=== PATIENT | female | born 1960 | race African-American/Black ===

== ENCOUNTER 2021-04-02 08:07 | Inpatient (IN) | payer MEDICAID ==
[~2021-04-02] VITALS: Ht 170.2 cm; Wt 58.8 kg
[~2021-04-02 08:07] MED LIST: FERR325T23 MT; FOLI-43 MT; RIVA10TA MT
[2021-04-02] MEDS ORDERED: SODIUM CHLORIDE 0.9% 100 ML IV ONE (08:45)
[2021-04-02 09:29] LABS: BASOPHILS % 0.5 % (0.0-2.0); EOSINOPHILS % 2.2 % (0.0-5.0); HEMATOCRIT. 25.3 % (36.0-48.0); HEMOGLOBIN. 8.5 g/dL (12.0-16.0); LYMPHOCYTES % 17.8 % (20.0-50.0); MEAN CORPUSCULAR HEMOGLOBIN 31.8 pg (28.0-32.0); MEAN CORPUSCULAR VOLUME 95.2 fL (81.0-99.0); MEAN PLATELET VOLUME 6.6 fl (7.4-10.4); MONOCYTES % 3.4 % (2.0-8.0); NEUTROPHILS % 76.1 % (40.0-76.0); PLATELET 138 x1000/uL (130-400); RED BLOOD CELL COUNT 2.66 mill/uL (4.2-5.4); RED CELL DISTRIBUTION WIDTH 18.6 % (11.6-14.6)
[2021-04-02 09:46] LABS: D-DIMER 7.13 mg/L FEU (<0.50); INR 1.2; PARTIAL THROMBOPLASTIN TIME 39.5 sec (23.4-31.0); PROTHROMBIN TIME 13.1 sec (9.6-11.0)
[2021-04-02] MEDS ORDERED: PIPERACILLIN/TAZOBACTAM 3.375GM/50ML PREMIX IV ONE (13:15)
[2021-04-02] MEDS ORDERED: PIPERACILLIN/TAZ 3.375G PREMIX 50 ML IV NR (13:15)
[2021-04-02] MEDS ORDERED: SODIUM CHLORIDE 0.9% 1,000 ML IV ONE (14:00)
[2021-04-02] MEDS ORDERED: ONDANSETRON HCL 4MG/2ML INJ IV PRN (15:30)
[2021-04-02] MEDS ORDERED: ACETAMINOPHEN 325MG TABLET PO PRN (15:30)
[2021-04-02] MEDS ORDERED: CLONIDINE 0.1MG TABLET PO PRN (15:30)
[2021-04-02] MEDS ORDERED: DIPHENHYDRAMINE 50MG/ML VIAL IV PRN (15:30)
[2021-04-02] MEDS ORDERED: IPRATROPIUM/ALBUTEROL 0.5-3(2.5)MG/3ML NEB HHN PRN (15:30)
[2021-04-02] MEDS ORDERED: ENOXAPARIN 30MG/0.3ML SYR SUBCUT SCH (15:45)
[2021-04-02] MEDS ORDERED: CEFTRIAXONE 1,000 MG in DEXTROSE 5% WATER 50 ML IV SCH (16:00)
[2021-04-02] MEDS ORDERED: AZITHROMYCIN 500 MG in DEXT 5% WATER 250 ML IV SCH (16:30)
[2021-04-02 18:08] LABS: PHOSPHORUS 2.5 mg/dL (2.5-4.9)
[2021-04-02 21:47] LABS: CLARITY URINE CLEAR (CLEAR); COLOR URINE YELLOW (YELLOW); KETONES URINE NEGATIVE (NEGATIVE); LEUKOCYTE ESTERASE URINE NEGATIVE (NEGATIVE); NITRITE URINE NEGATIVE (NEGATIVE); OCCULT BLOOD URINE NEGATIVE (NEGATIVE); PH URINE 5.5 (4.5-8.0); PROTEIN URINE NEGATIVE (NEGATIVE); SPECIFIC GRAVITY URINE 1.005 (1.005-1.030); UROBILINOGEN URINE 0.2 E.U./dL (0.2-1.0)
[2021-04-02 22:00] VITALS: BP 114/75
[2021-04-02 23:00] VITALS: BP 114/75
[2021-04-03] MEDS ORDERED: POTASSIUM CHLORIDE INJ 40 MEQ in DEXT 5% WATER 250 ML IV NR (03:00)
[2021-04-03 04:00] VITALS: BP 118/72
[2021-04-03 08:00] VITALS: BP 97/68
[2021-04-03 08:15] LABS: BASOPHILS % 0.5 % (0.0-2.0); EOSINOPHILS % 5.8 % (0.0-5.0); HEMATOCRIT. 21.3 % (36.0-48.0); HEMOGLOBIN. 7.1 g/dL (12.0-16.0); LYMPHOCYTES % 33.1 % (20.0-50.0); MEAN CORPUSCULAR HEMOGLOBIN 31.9 pg (28.0-32.0); MONOCYTES % 1.9 % (2.0-8.0); NEUTROPHILS % 58.7 % (40.0-76.0); PLATELET 92 x1000/uL (130-400); RED BLOOD CELL COUNT 2.22 mill/uL (4.2-5.4); RED CELL DISTRIBUTION WIDTH 18.9 % (11.6-14.6)
[2021-04-03 08:27] LABS: CHLORIDE 116 mEq/L (98-107)
[2021-04-03 08:38] LABS: LDL CHOLESTEROL 67 mg/dL (5-100)
[2021-04-03 08:39] LABS: HDL CHOLESTEROL 17 mg/dL (40-59)
[2021-04-03 15:26] VITALS: BP 97/68
[2021-04-03 20:00] VITALS: BP 138/67
== END 2021-04-03 16:34 | disposition home or self-care (01) | DRG 720 ==
LOC: ER 08:07 → MICUSO 11:11 → 6WST 21:10
PROVIDERS: ADMIT Internal Medicine; ATTEND Internal Medicine
PROC: 02HV33Z Insertion of Infusion Device into Superior Vena Cava, Percutaneous Approach (ICD-10-PCS; principal; 2021-04-02)
PROC: B548ZZA Ultrasonography of Superior Vena Cava, Guidance (ICD-10-PCS; 2021-04-02)
DX: A41.9 Sepsis, unspecified organism (principal); N17.0 Acute kidney failure with tubular necrosis; I21.4 Non-ST elevation (NSTEMI) myocardial infarction; I50.31 Acute diastolic (congestive) heart failure; E43 Unspecified severe protein-calorie malnutrition; D61.810 Antineoplastic chemotherapy induced pancytopenia; C77.9 Secondary and unspecified malignant neoplasm of lymph node, unspecified; J18.9 Pneumonia, unspecified organism; C34.90 Malignant neoplasm of unspecified part of unspecified bronchus or lung; D64.9 Anemia, unspecified; D69.59 Other secondary thrombocytopenia; E86.0 Dehydration; T45.1X5A Adverse effect of antineoplastic and immunosuppressive drugs, initial encounter; E87.6 Hypokalemia; I35.8 Other nonrheumatic aortic valve disorders; J91.0 Malignant pleural effusion; R62.7 Adult failure to thrive; I95.9 Hypotension, unspecified; D72.819 Decreased white blood cell count, unspecified; R74.01 Elevation of levels of liver transaminase levels; R59.0 Localized enlarged lymph nodes; Z92.21 Personal history of antineoplastic chemotherapy; Z79.01 Long term (current) use of anticoagulants; Z85.118 Personal history of other malignant neoplasm of bronchus and lung; Y92.89 Other specified places as the place of occurrence of the external cause; Z86.711 Personal history of pulmonary embolism; Z86.73 Personal history of transient ischemic attack (TIA), and cerebral infarction without residual deficits; Z87.891 Personal history of nicotine dependence; Z92.3 Personal history of irradiation; Z68.20 Body mass index [BMI] 20.0-20.9, adult
CPT/HCPCS: 36415; 71045; 76770; 76937; 78582; 80048; 80053; 80061; 81003; 82550; 82570; 83605; 83735; 84100; 84300; 84443; 84484; 85025; 85379; 86850; 86900; 93005; 93306; 93970; 99291; A9558; C1725; J0456; J0696; J1650; J2543; J3480; J7050; J7060

== ENCOUNTER 2021-04-30 07:34 | Inpatient (IN) | payer MEDICAID, OTHER ==
[2021-04-30] VITALS (32 sets, daily range): BP systolic 75–129; BP diastolic 40–78
[~2021-04-30] VITALS: Ht 167.6 cm; Wt 62.6 kg
[2021-04-30] MEDS ORDERED: VANCOMYCIN 1 G PREMIX 200 ML IV ONE (07:45)
[2021-04-30] MEDS ORDERED: PIPERACILLIN/TAZ 3.375G PREMIX 50 ML IV ONE (07:45)
[2021-04-30] MEDS ORDERED: SODIUM CHLORIDE 0.9% 1,000 ML IV ONE (07:45)
[2021-04-30] MEDS ORDERED: DEXTROSE 50% WATER 50ML SYRINGE IV ONE (08:00)
[2021-04-30 08:17] LABS: CHLORIDE 113 mEq/L (98-107)
[2021-04-30 08:18] LABS: INR 2.1; PROTHROMBIN TIME 21.7 sec (9.6-11.0)
[2021-04-30 08:38] LABS: CLARITY URINE CLEAR (CLEAR); COLOR URINE YELLOW (YELLOW); KETONES URINE NEGATIVE (NEGATIVE); LEUKOCYTE ESTERASE URINE NEGATIVE (NEGATIVE); NITRITE URINE NEGATIVE (NEGATIVE); OCCULT BLOOD URINE NEGATIVE (NEGATIVE); PROTEIN URINE NEGATIVE (NEGATIVE); SPECIFIC GRAVITY URINE 1.011 (1.005-1.030); UROBILINOGEN URINE 0.2 E.U./dL (0.2-1.0)
[2021-04-30] MEDS ORDERED: SODIUM CHLORIDE 0.9% 1000ML BAG (SEPSIS BOLUS) IV ONE (08:45)
[2021-04-30 08:51] LABS: MEAN CORPUSCULAR HEMOGLOBIN 37.2 pg (28.0-32.0); MEAN CORPUSCULAR VOLUME 129.6 fL (81.0-99.0); MEAN PLATELET VOLUME 7.4 fl (7.4-10.4); RED BLOOD CELL COUNT 0.34 mill/uL (4.2-5.4); RED CELL DISTRIBUTION WIDTH 20.3 % (11.6-14.6)
[2021-04-30 08:56] LABS: HEMATOCRIT. 4.4 % (36.0-48.0); HEMOGLOBIN. 1.3 g/dL (12.0-16.0)
[2021-04-30 08:57] LABS: PLATELET 2 x1000/uL (130-400)
[2021-04-30] MEDS ORDERED: CALCIUM GLUCONATE 100MG/ML 10ML VIAL IV ONE (09:15)
[2021-04-30 09:59] LABS: PLATELET ESTIMATE MARKEDLY DECREASED
[2021-04-30] MEDS ORDERED: ACETAMINOPHEN 325MG TABLET PO PRN (11:15)
[2021-04-30] MEDS ORDERED: ONDANSETRON HCL 4MG/2ML INJ IV PRN (11:15)
[2021-04-30] MEDS ORDERED: CEFEPIME 1,000 MG in DEXTROSE 5% WATER 50 ML IV SCH (12:00)
[2021-04-30] MEDS ORDERED: SODIUM BICARBONATE 100 MEQ in DEXTROSE 5% WATER 1,000 ML IV SCH (12:30)
[2021-04-30] MEDS: SODIUM BICARBONATE 100 MEQ in DEXTROSE 5% WATER 1,000 ML IV SCH (14:06)
[2021-04-30] MEDS: CEFEPIME 1,000 MG in DEXTROSE 5% WATER 50 ML IV SCH ×2 (14:06→22:59)
[2021-04-30] MEDS ORDERED: POTASSIUM CHLORIDE 20MEQ/PACKET PO NR (15:00)
[2021-04-30] MEDS: MIDODRINE HCL 5MG TABLET PO SCH ×2 (15:51→22:59)
[2021-04-30 18:53] LABS: HEMATOCRIT 28.3 % (36.0-48.0); HEMOGLOBIN 9.8 g/dL (12.0-16.0)
[2021-04-30] MEDS ORDERED: MIDAZOLAM HCL 2 MG/2 ML VIAL ONE (20:35)
[2021-04-30] MEDS ORDERED: FENTANYL CITRATE/PF 50MCG/ML 2ML VIAL ONE (20:35)
[2021-04-30] MEDS ORDERED: ROCURONIUM BROMIDE 10MG/ML VIAL 5ML IV ONE (20:59)
[2021-04-30] MEDS: PANTOPRAZOLE SODIUM 40 MG/VIAL IV SCH (21:04)
[2021-04-30] MEDS ORDERED: HYDROMORPHONE HCL/PF 2MG/ML (OR) ONE (21:52)
[2021-04-30] MEDS ORDERED: PHENYLEPHRINE HCL 10 MG/ML 1ML (IV VIAL) IV ONE (22:08)
[2021-04-30] MEDS ORDERED: VECURONIUM BROMIDE 10 MG/VIAL IV ONE (22:13)
[2021-05-01] VITALS (11 sets, daily range): BP systolic 95–119; BP diastolic 51–82
[2021-05-01] MEDS: SODIUM BICARBONATE 100 MEQ in DEXTROSE 5% WATER 1,000 ML IV SCH ×2 (03:58→19:20)
[2021-05-01] MEDS: MIDODRINE HCL 5MG TABLET PO SCH ×3 (05:24→22:22)
[2021-05-01 06:33] LABS: HEMATOCRIT. 22.2 % (36.0-48.0); HEMOGLOBIN. 7.9 g/dL (12.0-16.0); MEAN CORPUSCULAR HEMOGLOBIN 31.2 pg (28.0-32.0); MEAN CORPUSCULAR VOLUME 87.9 fL (81.0-99.0); MEAN PLATELET VOLUME 6.9 fl (7.4-10.4); RED BLOOD CELL COUNT 2.53 mill/uL (4.2-5.4)
[2021-05-01 06:44] LABS: PLATELET 42 x1000/uL (130-400)
[2021-05-01] MEDS ORDERED: VANCOMYCIN 750 MG PREMIX 150 ML IV SCH (08:00)
[2021-05-01 09:53] LABS: BG BASE EXCESS -6.1 mmol/L (-2.0-2.0); BG CARBOXYHEMOGLOBIN 0.5 % (0.5-1.5); BG DEOXYHEMOGLOBIN 4.1 % (0.0-5.0); BG FRACTION INSPIRED OXYGEN 21; BG HCO3 ACT 17.5 mmol/L (22.0-26.0); BG METHEMOGLOBIN 0.1 % (0.0-1.5); BG OXYGEN SATURATION 95.9 % (92.0-98.5); BG OXYHEMOGLOBIN 95.3 % (94.0-97.0); BG PCO2 28.2 mmHg (35.0-45.0); BG PH 7.411 (7.350-7.450); BG PO2 88.2 mmHg (75.0-100.0); BG SAMPLE SITE RIGHT BRACHIAL; BG TOTAL HEMOGLOBIN 9.3 g/dL (12.0-18.0); BG VENT MODE ROOM AIR
[2021-05-01 10:17] LABS: PHOSPHORUS 3.5 mg/dL (2.5-4.9)
[2021-05-01] MEDS: VANCOMYCIN 750 MG PREMIX 150 ML IV SCH (10:27)
[2021-05-01] MEDS ORDERED: ONDANSETRON HCL 4MG/2ML INJ IV PRN (10:30)
[2021-05-01] MEDS: PANTOPRAZOLE SODIUM 40 MG/VIAL IV SCH ×2 (11:00→21:37)
[2021-05-01] MEDS: METOCLOPRAMIDE HCL 10MG/2ML VIAL IV SCH ×2 (12:00→18:00)
[2021-05-01] MEDS: CEFEPIME 1,000 MG in DEXTROSE 5% WATER 50 ML IV SCH ×2 (12:37→21:37)
[2021-05-01] MEDS ORDERED: MIDAZOLAM HCL 5 MG/5 ML VIAL ONE (13:27)
[2021-05-01] MEDS ORDERED: FENTANYL CITRATE/PF 50MCG/ML 2ML VIAL ONE (13:27)
[2021-05-01] MEDS ORDERED: MIDAZOLAM HCL 5 MG/5 ML VIAL IV PRN (13:27)
[2021-05-01] MEDS ORDERED: MAGNESIUM 4 G PREMIX 100 ML IV SCH (14:00)
[2021-05-01] MEDS: PHYTONADIONE 10MG/ML AMP SUBCUT SCH (15:00)
[2021-05-01 15:35] LABS: PLATELET ESTIMATE MARKEDLY DECREASED
[2021-05-01 17:27] LABS: HEMATOCRIT. 24.4 % (36.0-48.0); HEMOGLOBIN. 8.2 g/dL (12.0-16.0); MEAN CORPUSCULAR HEMOGLOBIN 30.6 pg (28.0-32.0); MEAN CORPUSCULAR VOLUME 90.8 fL (81.0-99.0); MEAN PLATELET VOLUME 7.4 fl (7.4-10.4); RED BLOOD CELL COUNT 2.69 mill/uL (4.2-5.4); RED CELL DISTRIBUTION WIDTH 15.3 % (11.6-14.6)
[2021-05-01 17:30] LABS: PLATELET 18 x1000/uL (130-400)
[2021-05-01] MEDS: SUCRALFATE 1 G/10 ML UDC PO SCH ×2 (17:30→22:22)
[2021-05-01 17:31] LABS: INR 1.4; PROTHROMBIN TIME 15.1 sec (9.6-11.0)
[2021-05-01 17:35] LABS: TOTAL IRON BINDING CAPACITY 212 ug/dL (250-450)
[2021-05-01 17:59] LABS: PLATELET ESTIMATE MARKEDLY DECREASED
[2021-05-01 18:01] LABS: VITAMIN B12 SERUM >2000 pg/mL pg/mL (211-911)
[2021-05-01 18:08] LABS: FERRITIN 4448 ng/mL (10-291)
[2021-05-02] VITALS (36 sets, daily range): BP systolic 79–138; BP diastolic 40–82
[2021-05-02] MEDS: MIDODRINE HCL 5MG TABLET PO SCH ×3 (07:00→20:53)
[2021-05-02] MEDS: METOCLOPRAMIDE HCL 10MG/2ML VIAL IV SCH ×4 (07:01→17:29)
[2021-05-02] MEDS: SUCRALFATE 1 G/10 ML UDC PO SCH ×4 (07:49→20:52)
[2021-05-02] MEDS: VANCOMYCIN 750 MG PREMIX 150 ML IV SCH (07:59)
[2021-05-02] MEDS: CEFEPIME 1,000 MG in DEXTROSE 5% WATER 50 ML IV SCH ×2 (08:00→20:52)
[2021-05-02] MEDS: PHYTONADIONE 10MG/ML AMP SUBCUT SCH (08:18)
[2021-05-02] MEDS: PANTOPRAZOLE SODIUM 40 MG/VIAL IV SCH ×2 (08:18→20:52)
[2021-05-02] MEDS: SODIUM BICARBONATE 100 MEQ in DEXTROSE 5% WATER 1,000 ML IV SCH (10:58)
[2021-05-02 12:25] LABS: MEAN CORPUSCULAR HEMOGLOBIN 31.6 pg (28.0-32.0); MEAN CORPUSCULAR VOLUME 88.7 fL (81.0-99.0); MEAN PLATELET VOLUME 7.5 fl (7.4-10.4); RED BLOOD CELL COUNT 1.97 mill/uL (4.2-5.4); RED CELL DISTRIBUTION WIDTH 15.1 % (11.6-14.6)
[2021-05-02 12:30] LABS: HEMOGLOBIN. 6.2 g/dL (12.0-16.0)
[2021-05-02 12:31] LABS: HEMATOCRIT. 17.4 % (36.0-48.0); PLATELET 19 x1000/uL (130-400)
[2021-05-02 12:35] LABS: PARTIAL THROMBOPLASTIN TIME 43.9 sec (23.4-31.0); PHOSPHORUS 2.5 mg/dL (2.5-4.9)
[2021-05-02] MEDS ORDERED: POTASSIUM CHLORIDE 20MEQ TABLET SR PO NR (13:00)
[2021-05-02] MEDS ORDERED: MAGNESIUM 2 G PREMIX 50 ML IV NR (14:00)
[2021-05-02 14:10] LABS: PLATELET ESTIMATE MARKEDLY DECREASED
[2021-05-03] VITALS (16 sets, daily range): BP systolic 97–136; BP diastolic 60–99
[2021-05-03] MEDS: METOCLOPRAMIDE HCL 10MG/2ML VIAL IV SCH ×4 (00:48→18:00)
[2021-05-03] MEDS: SODIUM BICARBONATE 100 MEQ in DEXTROSE 5% WATER 1,000 ML IV SCH (00:48)
[2021-05-03 06:10] LABS: HEMATOCRIT. 24.7 % (36.0-48.0); HEMOGLOBIN. 8.7 g/dL (12.0-16.0); MEAN CORPUSCULAR HEMOGLOBIN 30.8 pg (28.0-32.0); MEAN CORPUSCULAR VOLUME 87.5 fL (81.0-99.0); MEAN PLATELET VOLUME 8.1 fl (7.4-10.4); RED BLOOD CELL COUNT 2.82 mill/uL (4.2-5.4); RED CELL DISTRIBUTION WIDTH 14.5 % (11.6-14.6)
[2021-05-03] MEDS: MIDODRINE HCL 5MG TABLET PO SCH ×4 (06:31→21:35)
[2021-05-03 06:35] LABS: PHOSPHORUS 2.8 mg/dL (2.5-4.9)
[2021-05-03 07:08] LABS: PLATELET 18 x1000/uL (130-400)
[2021-05-03] MEDS ORDERED: POTASSIUM CHLORIDE 20MEQ TABLET SR PO SCH (08:00)
[2021-05-03] MEDS: SUCRALFATE 1 G/10 ML UDC PO SCH ×4 (08:06→21:35)
[2021-05-03] MEDS: CEFEPIME 1,000 MG in DEXTROSE 5% WATER 50 ML IV SCH ×2 (08:06→21:34)
[2021-05-03] MEDS: PHYTONADIONE 10MG/ML AMP SUBCUT SCH (08:06)
[2021-05-03] MEDS: PANTOPRAZOLE SODIUM 40 MG/VIAL IV SCH ×2 (08:06→21:35)
[2021-05-03] MEDS ORDERED: POTASSIUM CHLORIDE INJ 40 MEQ in DEXT 5% WATER 250 ML IV SCH (09:00)
[2021-05-03 11:05] LABS: PLATELET ESTIMATE MARKEDLY DECREASED
[2021-05-03] MEDS: DEXT 5%/0.45% NACL 1000ML 1,000 ML IV SCH (12:41)
[2021-05-03] MEDS: VANCOMYCIN 1 G PREMIX 200 ML IV SCH (20:00)
[2021-05-03] MEDS: FILGRASTIM-TBO 300 MCG/0.5 ML SYRINGE SQ SCH (21:46)
[2021-05-03 23:34] LABS: HEMOGLOBIN. 7.2 g/dL (12.0-16.0); MEAN CORPUSCULAR HEMOGLOBIN 31.4 pg (28.0-32.0); MEAN CORPUSCULAR VOLUME 88.6 fL (81.0-99.0); MEAN PLATELET VOLUME 8.3 fl (7.4-10.4); RED BLOOD CELL COUNT 2.29 mill/uL (4.2-5.4); RED CELL DISTRIBUTION WIDTH 14.5 % (11.6-14.6)
[2021-05-04] VITALS (13 sets, daily range): BP systolic 106–153; BP diastolic 48–102
[2021-05-04 00:02] LABS: HEMATOCRIT. 20.3 % (36.0-48.0)
[2021-05-04 00:03] LABS: PLATELET 50 x1000/uL (130-400)
[2021-05-04 05:22] LABS: ATYPICAL LYMPHOCYTES 2; PLATELET ESTIMATE DECREASED
[2021-05-04 05:54] LABS: HEMATOCRIT. 22.6 % (36.0-48.0); MEAN CORPUSCULAR HEMOGLOBIN 31.3 pg (28.0-32.0); MEAN CORPUSCULAR VOLUME 88.7 fL (81.0-99.0); RED BLOOD CELL COUNT 2.55 mill/uL (4.2-5.4); RED CELL DISTRIBUTION WIDTH 14.7 % (11.6-14.6)
[2021-05-04] MEDS: METOCLOPRAMIDE HCL 10MG/2ML VIAL IV SCH ×5 (06:15→23:03)
[2021-05-04] MEDS: MIDODRINE HCL 5MG TABLET PO SCH ×3 (06:15→21:03)
[2021-05-04 06:45] LABS: PHOSPHORUS 3.4 mg/dL (2.5-4.9)
[2021-05-04 06:56] LABS: PLATELET 34 x1000/uL (130-400)
[2021-05-04] MEDS: CEFEPIME 1,000 MG in DEXTROSE 5% WATER 50 ML IV SCH (08:48)
[2021-05-04] MEDS: PANTOPRAZOLE SODIUM 40 MG/VIAL IV SCH ×2 (08:48→21:03)
[2021-05-04] MEDS: SUCRALFATE 1 G/10 ML UDC PO SCH ×4 (08:48→21:03)
[2021-05-04] MEDS: DEXT 5%/0.45% NACL 1000ML 1,000 ML IV SCH ×2 (08:58→23:03)
[2021-05-04] MEDS ORDERED: FILGRASTIM 300 MCG/ML VIAL SUBCUT SCH (09:00)
[2021-05-04] MEDS ORDERED: MAGNESIUM 2 G PREMIX 50 ML IV NR (11:00)
[2021-05-04] MEDS ORDERED: POTASSIUM CHLORIDE INJ 40 MEQ in DEXT 5% WATER 250 ML IV NR (11:00)
[2021-05-04 13:15] LABS: PLATELET ESTIMATE MARKEDLY DECREASED
[2021-05-04] MEDS: MEROPENEM 1,000 MG in SODIUM CHLORIDE 0.9% 100 ML IV SCH (17:28)
[2021-05-04] MEDS: FILGRASTIM-TBO 300 MCG/0.5 ML SYRINGE SQ SCH (21:21)
[2021-05-05] VITALS (15 sets, daily range): BP systolic 78–129; BP diastolic 46–102
[2021-05-05] MEDS: METOCLOPRAMIDE HCL 10MG/2ML VIAL IV SCH ×4 (05:15→23:55)
[2021-05-05] MEDS: MIDODRINE HCL 5MG TABLET PO SCH ×3 (05:16→22:07)
[2021-05-05] MEDS: MEROPENEM 1,000 MG in SODIUM CHLORIDE 0.9% 100 ML IV SCH ×2 (05:16→17:43)
[2021-05-05 06:46] LABS: PHOSPHORUS 3.8 mg/dL (2.5-4.9)
[2021-05-05 06:47] LABS: HEMATOCRIT. 21.4 % (36.0-48.0); HEMOGLOBIN. 7.5 g/dL (12.0-16.0); MEAN CORPUSCULAR HEMOGLOBIN 31.4 pg (28.0-32.0); MEAN CORPUSCULAR VOLUME 89.3 fL (81.0-99.0); RED BLOOD CELL COUNT 2.39 mill/uL (4.2-5.4); RED CELL DISTRIBUTION WIDTH 14.8 % (11.6-14.6)
[2021-05-05 07:52] LABS: PLATELET 12 x1000/uL (130-400)
[2021-05-05] MEDS: VANCOMYCIN 1 G PREMIX 200 ML IV SCH (07:58)
[2021-05-05] MEDS: SUCRALFATE 1 G/10 ML UDC PO SCH ×4 (07:58→22:05)
[2021-05-05] MEDS: PANTOPRAZOLE SODIUM 40 MG/VIAL IV SCH ×2 (08:01→22:05)
[2021-05-05] MEDS: DEXT 5%/0.2% NACL 1,000 ML IV SCH (10:15)
[2021-05-05] MEDS ORDERED: LIDOCAINE HCL 1% 20ML VIAL (Pyxis) INJ ONE (10:21)
[2021-05-05 11:19] LABS: PLATELET ESTIMATE MARKEDLY DECREASED
[2021-05-05] MEDS ORDERED: MAGNESIUM 2 G PREMIX 50 ML IV SCH (14:00)
[2021-05-05] MEDS ORDERED: SODIUM CHLORIDE 0.9% 500 ML IV ONE (16:00)
[2021-05-05] MEDS: FILGRASTIM-TBO 300 MCG/0.5 ML SYRINGE SQ SCH (22:07)
[2021-05-06] VITALS (18 sets, daily range): BP systolic 84–116; BP diastolic 30–75
[2021-05-06 05:13] LABS: PHOSPHORUS 4.5 mg/dL (2.5-4.9)
[2021-05-06] MEDS: MEROPENEM 1,000 MG in SODIUM CHLORIDE 0.9% 100 ML IV SCH ×2 (05:34→17:09)
[2021-05-06] MEDS: MIDODRINE HCL 5MG TABLET PO SCH ×3 (05:34→17:09)
[2021-05-06] MEDS: METOCLOPRAMIDE HCL 10MG/2ML VIAL IV SCH ×4 (05:34→23:25)
[2021-05-06 06:25] LABS: MEAN CORPUSCULAR HEMOGLOBIN 31.3 pg (28.0-32.0); MEAN CORPUSCULAR VOLUME 88.5 fL (81.0-99.0); MEAN PLATELET VOLUME 8.7 fl (7.4-10.4); RED BLOOD CELL COUNT 2.03 mill/uL (4.2-5.4); RED CELL DISTRIBUTION WIDTH 14.9 % (11.6-14.6)
[2021-05-06 06:35] LABS: HEMOGLOBIN. 6.4 g/dL (12.0-16.0)
[2021-05-06 06:38] LABS: PLATELET 26 x1000/uL (130-400)
[2021-05-06] MEDS: DEXT 5%/0.2% NACL 1,000 ML IV SCH (08:42)
[2021-05-06] MEDS: PANTOPRAZOLE SODIUM 40 MG/VIAL IV SCH ×2 (08:43→20:52)
[2021-05-06] MEDS: SUCRALFATE 1 G/10 ML UDC PO SCH ×4 (08:43→20:53)
[2021-05-06] MEDS ORDERED: LACTULOSE 20G/30ML UDC PO NR (13:15)
[2021-05-06] MEDS ORDERED: POTASSIUM CHLORIDE 20MEQ TABLET SR PO NR (13:30)
[2021-05-06] MEDS: DOCUSATE SODIUM SUGAR FREE 100MG/10ML UDC NG SCH (13:43)
[2021-05-06 16:46] LABS: PLATELET ESTIMATE MARKEDLY DECREASED
[2021-05-06] MEDS: FILGRASTIM-TBO 300 MCG/0.5 ML SYRINGE SQ SCH (21:38)
[2021-05-07] VITALS (15 sets, daily range): BP systolic 83–109; BP diastolic 51–69
[2021-05-07] MEDS: MIDODRINE HCL 5MG TABLET PO SCH ×3 (00:47→17:10)
[2021-05-07] MEDS: DEXT 5%/0.2% NACL 1,000 ML IV SCH ×2 (02:15→15:41)
[2021-05-07] MEDS: METOCLOPRAMIDE HCL 10MG/2ML VIAL IV SCH ×4 (05:18→23:25)
[2021-05-07] MEDS: MEROPENEM 1,000 MG in SODIUM CHLORIDE 0.9% 100 ML IV SCH ×2 (05:18→17:19)
[2021-05-07 07:43] LABS: HEMATOCRIT. 26.8 % (36.0-48.0); HEMOGLOBIN. 9.2 g/dL (12.0-16.0); MEAN CORPUSCULAR HEMOGLOBIN 30.1 pg (28.0-32.0); MEAN CORPUSCULAR VOLUME 87.6 fL (81.0-99.0); MEAN PLATELET VOLUME 8.3 fl (7.4-10.4); RED BLOOD CELL COUNT 3.06 mill/uL (4.2-5.4)
[2021-05-07 07:56] LABS: PHOSPHORUS 5.5 mg/dL (2.5-4.9)
[2021-05-07 07:59] LABS: PLATELET 12 x1000/uL (130-400)
[2021-05-07] MEDS: DOCUSATE SODIUM SUGAR FREE 100MG/10ML UDC NG SCH (09:00)
[2021-05-07] MEDS: PANTOPRAZOLE SODIUM 40 MG/VIAL IV SCH ×2 (10:32→20:23)
[2021-05-07 10:36] LABS: PLATELET ESTIMATE MARKEDLY DECREASED
[2021-05-07] MEDS ORDERED: POTASSIUM CHLORIDE INJ 40 MEQ in DEXT 5% WATER 250 ML IV SCH (11:00)
[2021-05-07] MEDS: SUCRALFATE 1 G/10 ML UDC PO SCH ×3 (11:52→20:23)
[2021-05-07] MEDS: FILGRASTIM-TBO 300 MCG/0.5 ML SYRINGE SQ SCH (20:37)
[2021-05-08] VITALS (10 sets, daily range): BP systolic 84–114; BP diastolic 31–67
[2021-05-08] MEDS: MIDODRINE HCL 5MG TABLET PO SCH ×3 (00:35→17:56)
[2021-05-08] MEDS: METOCLOPRAMIDE HCL 10MG/2ML VIAL IV SCH ×3 (05:14→17:52)
[2021-05-08] MEDS: MEROPENEM 1,000 MG in SODIUM CHLORIDE 0.9% 100 ML IV SCH ×2 (05:14→17:52)
[2021-05-08] MEDS: DEXT 5%/0.2% NACL 1,000 ML IV SCH ×3 (05:14→20:41)
[2021-05-08 08:10] LABS: MEAN CORPUSCULAR HEMOGLOBIN 30.1 pg (28.0-32.0); MEAN CORPUSCULAR VOLUME 86.6 fL (81.0-99.0)
[2021-05-08 08:22] LABS: PLATELET 28 x1000/uL (130-400)
[2021-05-08 08:23] LABS: PHOSPHORUS 5.6 mg/dL (2.5-4.9)
[2021-05-08] MEDS: DOCUSATE SODIUM SUGAR FREE 100MG/10ML UDC NG SCH (08:45)
[2021-05-08] MEDS: PANTOPRAZOLE SODIUM 40 MG/VIAL IV SCH ×2 (08:45→20:40)
[2021-05-08] MEDS: SUCRALFATE 1 G/10 ML UDC PO SCH ×4 (08:45→20:40)
[2021-05-08 12:03] LABS: PLATELET ESTIMATE MARKEDLY DECREASED
[2021-05-08] MEDS: FILGRASTIM-TBO 300 MCG/0.5 ML SYRINGE SQ SCH (20:40)
[2021-05-09] VITALS (34 sets, daily range): BP systolic 70–151; BP diastolic 34–98
[2021-05-09] MEDS: MIDODRINE HCL 5MG TABLET PO SCH ×3 (02:33→16:18)
[2021-05-09] MEDS: METOCLOPRAMIDE HCL 10MG/2ML VIAL IV SCH ×4 (05:02→23:52)
[2021-05-09] MEDS: MEROPENEM 1,000 MG in SODIUM CHLORIDE 0.9% 100 ML IV SCH ×2 (05:02→18:17)
[2021-05-09 07:00] LABS: HEMATOCRIT. 25.6 % (36.0-48.0); HEMOGLOBIN. 8.7 g/dL (12.0-16.0); MEAN CORPUSCULAR VOLUME 87.8 fL (81.0-99.0); MEAN PLATELET VOLUME 8.8 fl (7.4-10.4); RED BLOOD CELL COUNT 2.91 mill/uL (4.2-5.4); RED CELL DISTRIBUTION WIDTH 16.4 % (11.6-14.6)
[2021-05-09 07:11] LABS: PHOSPHORUS 5.3 mg/dL (2.5-4.9)
[2021-05-09 07:29] LABS: PLATELET 6 x1000/uL (130-400)
[2021-05-09] MEDS: DEXT 5%/0.2% NACL 1,000 ML IV SCH ×3 (07:52→20:22)
[2021-05-09] MEDS: SUCRALFATE 1 G/10 ML UDC PO SCH ×4 (08:40→21:00)
[2021-05-09] MEDS: PANTOPRAZOLE SODIUM 40 MG/VIAL IV SCH ×2 (08:40→21:33)
[2021-05-09] MEDS: DOCUSATE SODIUM SUGAR FREE 100MG/10ML UDC NG SCH (08:40)
[2021-05-09 09:45] LABS: PLATELET ESTIMATE MARKEDLY DECREASED
[2021-05-09] MEDS ORDERED: DEXTROSE 50% WATER 50ML SYRINGE IV PRN (15:30)
[2021-05-09] MEDS ORDERED: SODIUM CHLORIDE 0.9% 500 ML IV NR (17:30)
[2021-05-09] MEDS: BLOOD SUGAR DIAGNOSTIC STRIP TEST SCH ×2 (17:54→21:13)
[2021-05-09] MEDS: NOREPINEPHRINE 32 MG in DEXT 5% WATER 218 ML IV PRN (19:24)
[2021-05-09 19:35] LABS: BG BASE EXCESS -8.1 mmol/L (-2.0-2.0); BG CARBOXYHEMOGLOBIN 0.3 % (0.5-1.5); BG DEOXYHEMOGLOBIN 7.1 % (0.0-5.0); BG FRACTION INSPIRED OXYGEN 100; BG HCO3 ACT 21.1 mmol/L (22.0-26.0); BG METHEMOGLOBIN 0.6 % (0.0-1.5); BG OXYGEN SATURATION 92.8 % (92.0-98.5); BG PO2 81.7 mmHg (75.0-100.0); BG SAMPLE SITE RIGHT RADIAL; BG TOTAL HEMOGLOBIN 9.2 g/dL (12.0-18.0); BG VENT MODE MASK - NRB
[2021-05-09] MEDS: DOXYCYCLINE 100 MG in DEXT 5% WATER 100 ML IV SCH (20:41)
[2021-05-09] MEDS ORDERED: FILGRASTIM 480 MCG/0.8 ML SYRINGE SUBCUT SCH (21:00)
[2021-05-10] VITALS (100 sets, daily range): BP systolic 39–138; BP diastolic 23–82
[2021-05-10] MEDS: MIDODRINE HCL 5MG TABLET PO SCH ×3 (00:08→16:58)
[2021-05-10] MEDS ORDERED: FUROSEMIDE 40MG/4ML VIAL IVP SCH (01:00)
[2021-05-10] MEDS: DEXT 5%/0.2% NACL 1,000 ML IV SCH (03:56)
[2021-05-10] MEDS: METOCLOPRAMIDE HCL 10MG/2ML VIAL IV SCH ×3 (05:30→18:19)
[2021-05-10] MEDS ORDERED: MEROPENEM 1,000 MG in SODIUM CHLORIDE 0.9% 100 ML IV SCH (06:00)
[2021-05-10] MEDS: DOXYCYCLINE 100 MG in DEXT 5% WATER 100 ML IV SCH ×2 (06:15→18:20)
[2021-05-10 06:51] LABS: HEMATOCRIT. 25.4 % (36.0-48.0); HEMOGLOBIN. 8.7 g/dL (12.0-16.0); MEAN CORPUSCULAR HEMOGLOBIN 29.9 pg (28.0-32.0); MEAN CORPUSCULAR VOLUME 87.3 fL (81.0-99.0); RED BLOOD CELL COUNT 2.91 mill/uL (4.2-5.4); RED CELL DISTRIBUTION WIDTH 16.6 % (11.6-14.6)
[2021-05-10 07:04] LABS: PHOSPHORUS 6.6 mg/dL (2.5-4.9)
[2021-05-10 07:25] LABS: PLATELET 21 x1000/uL (130-400)
[2021-05-10] MEDS: BLOOD SUGAR DIAGNOSTIC STRIP TEST SCH ×3 (07:50→17:50)
[2021-05-10] MEDS ORDERED: MAGNESIUM 2 G PREMIX 50 ML IV NR (08:30)
[2021-05-10] MEDS ORDERED: VECURONIUM BROMIDE 10 MG/VIAL IV ONE (09:16)
[2021-05-10] MEDS ORDERED: ATROPINE SULFATE 1MG/10ML SYR ONE (09:16)
[2021-05-10] MEDS ORDERED: SODIUM BICARBONATE 8.4% 1 MEQ/ML 50ML SYR IV ONE (09:16)
[2021-05-10] MEDS ORDERED: ETOMIDATE 2MG/ML 10ML VIAL IV ONE (09:16)
[2021-05-10] MEDS ORDERED: EPINEPHRINE 0.1MG/ML (1:10,000) 10ML SYR ONE (09:16)
[2021-05-10] MEDS ORDERED: CALCIUM CHLORIDE 1GM/10ML SYR IV ONE (09:16)
[2021-05-10 09:31] LABS: BG BASE EXCESS -11.8 mmol/L (-2.0-2.0); BG CARBOXYHEMOGLOBIN 0.3 % (0.5-1.5); BG DEOXYHEMOGLOBIN 14.1 % (0.0-5.0); BG FRACTION INSPIRED OXYGEN 100; BG HCO3 ACT 18.9 mmol/L (22.0-26.0); BG METHEMOGLOBIN 0.7 % (0.0-1.5); BG OXYGEN SATURATION 85.8 % (92.0-98.5); BG OXYHEMOGLOBIN 84.9 % (94.0-97.0); BG PCO2 71.5 mmHg (35.0-45.0); BG SAMPLE SITE RIGHT FEMORAL; BG TOTAL HEMOGLOBIN 9.7 g/dL (12.0-18.0); BG VENT MODE VENT - AC
[2021-05-10] MEDS: IPRATROPIUM/ALBUTEROL 0.5-3(2.5)MG/3ML NEB HHN PRN ×3 (09:31→15:31)
[2021-05-10] MEDS ORDERED: SODIUM BICARBONATE 8.4% 1 MEQ/ML 50ML SYR IV NR ×3 (09:45→13:30)
[2021-05-10] MEDS: SUCRALFATE 1 G/10 ML UDC PO SCH ×3 (09:52→16:58)
[2021-05-10] MEDS: PANTOPRAZOLE SODIUM 40 MG/VIAL IV SCH (09:52)
[2021-05-10] MEDS: NOREPINEPHRINE 32 MG in DEXT 5% WATER 218 ML IV PRN ×2 (09:52→15:30)
[2021-05-10] MEDS: DOCUSATE SODIUM SUGAR FREE 100MG/10ML UDC NG SCH (09:53)
[2021-05-10 11:16] LABS: BG BASE EXCESS -7.2 mmol/L (-2.0-2.0); BG CARBOXYHEMOGLOBIN 0.3 % (0.5-1.5); BG DEOXYHEMOGLOBIN 10.8 % (0.0-5.0); BG FRACTION INSPIRED OXYGEN 100; BG HCO3 ACT 18.5 mmol/L (22.0-26.0); BG METHEMOGLOBIN 1.2 % (0.0-1.5); BG OXYHEMOGLOBIN 87.7 % (94.0-97.0); BG PCO2 37.9 mmHg (35.0-45.0); BG PH 7.306 (7.350-7.450); BG PO2 58.6 mmHg (75.0-100.0); BG SAMPLE SITE RIGHT FEMORAL; BG TOTAL HEMOGLOBIN 9.8 g/dL (12.0-18.0); BG VENT MODE VENT - AC
[2021-05-10] MEDS: VASOPRESSIN 20 UNIT in SODIUM CHLORIDE 0.9% 99 ML IV PRN ×2 (11:52→15:20)
[2021-05-10] MEDS: PHENYLEPHRINE 100 MG in DEXT 5% WATER 240 ML IV PRN ×2 (11:58→15:31)
[2021-05-10] MEDS ORDERED: SODIUM BICARBONATE 50 MEQ in DEXT 5%/0.45% NACL 1000ML 1,000 ML IV SCH (13:00)
[2021-05-10] MEDS ORDERED: LORAZEPAM 2MG/ML CPJ IV PRN (13:30)
[2021-05-10 13:38] LABS: PLATELET ESTIMATE MARKEDLY DECREASED
[2021-05-10 16:14] LABS: BG BASE EXCESS -6.8 mmol/L (-2.0-2.0); BG CARBOXYHEMOGLOBIN 0.5 % (0.5-1.5); BG DEOXYHEMOGLOBIN 10.2 % (0.0-5.0); BG FRACTION INSPIRED OXYGEN 100; BG HCO3 ACT 17.7 mmol/L (22.0-26.0); BG METHEMOGLOBIN 0.1 % (0.0-1.5); BG OXYGEN SATURATION 89.7 % (92.0-98.5); BG OXYHEMOGLOBIN 89.2 % (94.0-97.0); BG PCO2 31.3 mmHg (35.0-45.0); BG PH 7.371 (7.350-7.450); BG PO2 58.1 mmHg (75.0-100.0); BG SAMPLE SITE RIGHT FEMORAL; BG TOTAL HEMOGLOBIN 7.2 g/dL (12.0-18.0); BG VENT MODE VENT - AC
[2021-05-10] MEDS ORDERED: PHENYLEPHRINE 100 MG in DEXT 5% WATER 240 ML IV PRN (17:15)
[2021-05-10] MEDS ORDERED: VASOPRESSIN 20 UNIT in SODIUM CHLORIDE 0.9% 99 ML IV PRN (17:15)
[2021-05-10] MEDS ORDERED: NOREPINEPHRINE 32 MG in DEXT 5% WATER 218 ML IV PRN (17:15)
[2021-05-10] MEDS ORDERED: IPRATROPIUM/ALBUTEROL 0.5-3(2.5)MG/3ML NEB HHN SCH (20:00)
[2021-05-10] MEDS ORDERED: MEROPENEM 500MG in NORMAL SALINE 50ML IV SCH (21:00)
[2021-05-10] MEDS ORDERED: EPINEPHRINE 10 MG in SODIUM CHLORIDE 0.9% 240 ML IV PRN (21:15)
[2021-05-11] MEDS ORDERED: EPINEPHRINE 0.1MG/ML (1:10,000) 10ML SYR ONE (09:17)
[2021-05-11] MEDS ORDERED: SODIUM BICARBONATE 8.4% 1 MEQ/ML 50ML SYR IV ONE (09:17)
[2021-05-11] MEDS ORDERED: DEXTROSE 50% WATER 50ML SYRINGE IV ONE (09:17)
[2021-05-11] MEDS ORDERED: CALCIUM CHLORIDE 1GM/10ML SYR IV ONE (09:17)
[2021-05-11] MEDS ORDERED: AMIODARONE HCL 50MG/ML 3ML VIAL IV ONE (09:17)
[2021-05-11] MEDS ORDERED: LIDOCAINE HCL 2% 5ML SYRINGE IV ONE (09:17)
== END 2021-05-11 00:01 | DRG 720 ==
LOC: ER 07:34 → 5EST 10:35 → EDBEDREQTM 10:41 → EDBEDREQ 10:41 → EDBEDREQSVC 11:20 → ENRESERV 11:23 → CVICU 05-09 19:40
PROVIDERS: ADMIT Internal Medicine; ATTEND Internal Medicine
PROC: 30233N1 Transfusion of Nonautologous Red Blood Cells into Peripheral Vein, Percutaneous Approach (ICD-10-PCS; 2021-04-30)
PROC: 30233R1 Transfusion of Nonautologous Platelets into Peripheral Vein, Percutaneous Approach (ICD-10-PCS; 2021-04-30)
PROC: 0DJ08ZZ Inspection of Upper Intestinal Tract, Via Natural or Artificial Opening Endoscopic (ICD-10-PCS; 2021-05-01)
PROC: 02HV33Z Insertion of Infusion Device into Superior Vena Cava, Percutaneous Approach (ICD-10-PCS; 2021-05-01)
PROC: B548ZZA Ultrasonography of Superior Vena Cava, Guidance (ICD-10-PCS; 2021-05-01)
PROC: 30233K1 Transfusion of Nonautologous Frozen Plasma into Peripheral Vein, Percutaneous Approach (ICD-10-PCS; 2021-05-02)
PROC: 02HV33Z Insertion of Infusion Device into Superior Vena Cava, Percutaneous Approach (ICD-10-PCS; 2021-05-05)
PROC: B548ZZA Ultrasonography of Superior Vena Cava, Guidance (ICD-10-PCS; 2021-05-05)
PROC: 5A09357 Assistance with Respiratory Ventilation, Less than 24 Consecutive Hours, Continuous Positive Airway Pressure (ICD-10-PCS; 2021-05-09)
PROC: 5A12012 Performance of Cardiac Output, Single, Manual (ICD-10-PCS; principal; 2021-05-10)
PROC: 5A1935Z Respiratory Ventilation, Less than 24 Consecutive Hours (ICD-10-PCS; 2021-05-10)
PROC: 0BH17EZ Insertion of Endotracheal Airway into Trachea, Via Natural or Artificial Opening (ICD-10-PCS; 2021-05-10)
PROC: 5A2204Z Restoration of Cardiac Rhythm, Single (ICD-10-PCS; 2021-05-11)
DX: A41.9 Sepsis, unspecified organism (principal); N17.0 Acute kidney failure with tubular necrosis; J96.01 Acute respiratory failure with hypoxia; R65.21 Severe sepsis with septic shock; E43 Unspecified severe protein-calorie malnutrition; D61.818 Other pancytopenia; K29.71 Gastritis, unspecified, with bleeding; D68.9 Coagulation defect, unspecified; E87.4 Mixed disorder of acid-base balance; E87.1 Hypo-osmolality and hyponatremia; E83.51 Hypocalcemia; J18.9 Pneumonia, unspecified organism; C79.31 Secondary malignant neoplasm of brain; N18.30 Chronic kidney disease, stage 3 unspecified; R04.0 Epistaxis; E16.2 Hypoglycemia, unspecified; E87.8 Other disorders of electrolyte and fluid balance, not elsewhere classified; C34.91 Malignant neoplasm of unspecified part of right bronchus or lung; Z20.822 Contact with and (suspected) exposure to COVID-19; J91.0 Malignant pleural effusion; E83.42 Hypomagnesemia; D53.9 Nutritional anemia, unspecified; K20.91 Esophagitis, unspecified with bleeding; K29.80 Duodenitis without bleeding; K59.00 Constipation, unspecified; I46.9 Cardiac arrest, cause unspecified; Z79.2 Long term (current) use of antibiotics; Z79.899 Other long term (current) drug therapy; Z85.118 Personal history of other malignant neoplasm of bronchus and lung; Z68.22 Body mass index [BMI] 22.0-22.9, adult; Z87.891 Personal history of nicotine dependence; Z86.711 Personal history of pulmonary embolism; Z82.49 Family history of ischemic heart disease and other diseases of the circulatory system
CPT/HCPCS: 31500; 36415; 36430; 36600; 70551; 71045; 74176; 76770; 76937; 80048; 80053; 80202; 81003; 82375; 82378; 82550; 82607; 82728; 82746; 82805; 82962; 83540; 83550; 83605; 83735; 84100; 84145; 84484; 85014; 85018; 85025; 85044; 85049; 85384; 86850; 86900; 86920; 86927; 87070; 87426; 92610; 93005; 94002; 94640; 94660; 97162; 99291; C1725; C9113; J0282; J0461; J0610; J0692; J1170; J1442; J1940; J2185; J2250; J2370; J2405; J2543; J2765; J3010; J3370; J3430; J3475; J3480; J3490; J7030; J7040; J7050; J7060; J7070; P9016; P9017; P9034; P9035; P9036